=== PATIENT | male | born 1975 | race Caucasian/White ===

== ENCOUNTER 2018-08-18 08:23 | Emergency (ER) | payer BC, OTHER ==
--- NOTE | 2018-08-18 09:41 | EDPHY ---
H & P Stated Complaint: cp l arm pain intermittently last 2 months Time Seen by Provider: 08/18/18 08:50 HPI/ROS: CHIEF COMPLAINT: Left-sided chest pain HISTORY OF PRESENT ILLNESS: 43-year-old male presents with left-sided chest pain. Onset chest pain this morning after waking up. The pain was left-sided and radiated to the mandible and left upper extremity. He laid back in bed and the pain resolved in approximately 45 min. Multiple similar episodes upon awakening in the past couple of months. Associated with acidic feeling in his mouth. No other associated sx and no aggrav/allev factors. No cp with exertion. Exercises regularly. Negative cardiac risk factors; non-smoker, no DM/HTN/FH/hyperlipidemia REVIEW OF SYSTEMS: complete 10 point ROS reviewed and is negative except for the noted elements in the HPI - Personal History Current Tetanus Diphtheria and Acellular Pertussis (TDAP): Yes - Medical/Surgical History Hx Asthma: No Hx Chronic Respiratory Disease: No Hx Diabetes: No Hx Cardiac Disease: No Hx Renal Disease: No Hx Cirrhosis: No Hx Alcoholism: No Hx HIV/AIDS: No Hx Splenectomy or Spleen Trauma: No Other PMH: inguinal hernia - Social History Smoking Status: Never smoked Constitutional: Initial Vital Signs Temperature (C) 36.6 C 08/18/18 08:25 Heart Rate 56 L 08/18/18 08:25 Respiratory Rate 18 08/18/18 08:25 Blood Pressure 150/98 H 08/18/18 08:25 O2 Sat (%) 98 08/18/18 08:25 O2 Delivery Mode Room Air Allergies/Adverse Reactions: No Known Allergies Allergy (Verified 08/18/18 08:25) Home Medications: Medication Instructions Recorded NK [No Known Home Meds] 10/24/13 Medical Decision Making - Diagnostics EKG Interpretation: EKG interpreted by me reveals sinus rhythm, rate 53, abnormal R-wave progression. Interpretation: Borderline EKG Imaging Results: Imaging Impressions Chest X-Ray 08/18/18 09:40 Impression: No acute findings in the chest. Imaging: I viewed and interpreted images myself ED Course/Re-evaluation: This pt presents with atypical cp. Clinical history most c/w GERD. stat EKG and CXR unremarkable. Initial troponin normal. d/w pt shared decision-making, will d/c home with prompt cardiology f/u. PERC score 0; can safely exclude PE. Warning signs discussed. Protonix 40mg orally given for likely GERD. Differential Diagnosis: Differential diagnosis includes though it is not limited to pneumonia, pneumothorax, pulmonary embolism, aortic dissection, pericarditis, acute coronary syndrome. - Data Points Laboratory Results: Laboratory Results 08/18/18 08:35 08/18/18 08:35 08/18/18 08/18/18 08/18/18 08:43 08:35 08:35 WBC 6.70 10^3/uL 10^3/uL (3.80-9.50) RBC 5.16 10^6/uL 10^6/uL (4.40-6.38) Hgb 15.3 g/dL g/dL (13.7-17.5) Hct 45.7 % % (40.0-51.0) MCV 88.6 fL fL (81.5-99.8) MCH 29.7 pg pg (27.9-34.1) MCHC 33.5 g/dL g/dL (32.4-36.7) RDW 13.0 % % (11.5-15.2) Plt Count 189 10^3/uL 10^3/uL (150-400) MPV 10.8 fL fL (8.7-11.7) Neut % (Auto) 44.2 % % (39.3-74.2) Lymph % (Auto) 42.5 % % (15.0-45.0) [place] % (Auto) 9.6 % % (4.5-13.0) Eos % (Auto) 2.8 % % (0.6-7.6) Baso % (Auto) 0.6 % % (0.3-1.7) Nucleat RBC Rel Count 0.0 % % (0.0-0.2) Absolute Neuts (auto) 2.96 10^3/uL 10^3/uL (1.70-6.50) Absolute Lymphs (auto) 2.85 10^3/uL 10^3/uL (1.00-3.00) Absolute Monos (auto) 0.64 10^3/uL 10^3/uL (0.30-0.80) Absolute Eos (auto) 0.19 10^3/uL 10^3/uL (0.03-0.40) Absolute Basos (auto) 0.04 10^3/uL 10^3/uL (0.02-0.10) Absolute Nucleated RBC 0.00 10^3/uL 10^3/uL (0-0.01) Immature Gran % 0.3 % % (0.0-1.1) Immature Gran # 0.02 10^3/uL 10^3/uL (0.00-0.10) Sodium 140 mEq/L mEq/L (135-145) Potassium 4.4 mEq/L mEq/L (3.5-5.2) Chloride 106 mEq/L mEq/L (97-110) Carbon Dioxide 27 mEq/l mEq/l (22-31) Anion Gap 7 mEq/L mEq/L (6-14) BUN 20 mg/dL mg/dL (7-23) Creatinine 0.9 mg/dL mg/dL (0.7-1.3) Estimated GFR > 60 Glucose 118 mg/dL H mg/dL (70-100) Calcium 9.5 mg/dL mg/dL (8.5-10.4) POC Troponin I 0.01 ng/mL ng/mL (0.00-0.08) Medications Given: Discontinued Medications Pantoprazole Sodium (Protonix) 40 mg PO EDNOW ONE Stop: 08/18/18 09:54 Last Admin: 08/18/18 09:59 Dose: 40 mg Point of Care Test Results: Chemistry 08/18/18 08:43 POC Troponin I 0.01 ng/mL ng/mL (0.00-0.08) Departure - Departure Disposition: Home, Routine, Self-Care Clinical Impression: Chest pain Condition: Good Instructions: Chest Pain (ED) Additional Instructions: 1. Based upon the testing done in the Emergency Department today we see no evidence of a heart attack. 2. We are unable to fully exclude coronary artery disease based upon the testing available in the Emergency Department. 3. For this reason, we would like you to be seen by cardiology for consideration of additional testing within the next 3 days. 4. Please contact the [facility] you have been referred to schedule this appointment as soon as possible. Their offices are typically open from 8:30am- 5pm M-F. 5. Please return to the Emergency Department immediately for any recurrent chest pain, difficulty breathing or other concerns. 6. Take Prilosec over the counter as directed on the packaging. Referrals: Robe Bradford MD [Medical Doctor] - As per Instructions
[2018-08-18 09:46] LABS: PLATELET COUNT 189 10^3/uL (150-400)
[2018-08-18] MEDS ORDERED: PANTOPRAZOLE SODIUM 40 MG TAB PO ONE (09:53)
[2018-08-18 10:05] VITALS: BP 141/79
--- NOTE | 2018-08-18 15:18 | CPEKG ---
Test Reason : OPEN Blood Pressure : / mmHG Vent. Rate : 053 BPM Atrial Rate : 053 BPM P-R Int : 160 ms QRS Dur : 101 ms QT Int : 438 ms P-R-T Axes : 048 058 047 degrees QTc Int : 412 ms Sinus rhythm Abnormal R-wave progression, early transition Confirmed by Puja Bansal ([id number]) on 08/18/2018 3:18:09 PM Referred By: PHYSICIAN ED Confirmed By:Puja Bansal
== END 2018-08-18 10:03 | disposition home or self-care (01) ==
DX: R07.89 Other chest pain (principal)
CPT/HCPCS: 84484-ER